=== PATIENT | female | born 1955 | race Caucasian/White ===

== ENCOUNTER 2018-01-06 07:28 | Emergency (ER) | payer BC, SELFPAY ==
[2018-01-06 07:50] VITALS: BP 133/79; PULSE 60; RESP 18; TEMP 36.7; O2SAT 99
[2018-01-06] MEDS: BUTALB/APAP/CAFFEINE 50/325/40 TABLET 2 EACH PO (08:24)
--- NOTE | 2018-01-06 08:27 | PC.NURSE ---
medicated pt with Fiorocet and ice pack provided for comfort.
[2018-01-06 08:54] VITALS: BP 139/75; PULSE 75; RESP 16; O2SAT 100
--- NOTE | 2018-01-06 08:54 | ED.HA ---
HPI - Headache General Chief Complaint: Headache Stated Complaint: MIGRAINE X2 DAY Time Seen by Provider: 01/06/18 07:48 History of Present Illness HPI Narrative: HPI 62-year-old female migraineur presents for evaluation of approximately 3 days of gradual onset typical left-sided retroocular headache that is been steady despite OTC medications. Patient notes good prior relief with Fioricet and is requesting the same. * Denies changes in vision or hearing, fevers, neck stiffness, rashes, neck pain, temporal pain, jaw pain with chewing, dental pain, minor neck trauma, chiropractic manipulation, or head trauma. * Denies anticoagulation or hypercoaguable history. * Unable to identify any higher risk exposures to possible carbon monoxide. M/S/F/SocHx notable for: please see HPI; remainder reviewed with patient and in chart. ROS: Negative constitutional, eye, cardiovascular, pulmonary, GI, , MSK, skin, neurologic, psychiatric, endocrine unless noted in the HPI. Exam Gen: Pleasant, non-toxic appearing, resting comfortably. HEENT: NC, AT, TMs clear bilaterally without effusions, erythema, or lesions, preauricular, pinna, and external canal skin without lesions. Dentition intact without visible caries. No frontal or maxillary sinus TTP. Temples without TTP bilaterally, equal 2+ temporal artery pulses. No paraspinal posterior neck pain. Resp: CTAB Card: RRR GI: NT/ND : Deferred MSK: No visible deformities, strength and tone WNL. Skin: Normal color with no visible lesions. Neuro: Gen AO x 3, no facial asymmetry, no gaze preference, no slurring of speech. CN II-III: pupils equal and reactive (3->2mm bilaterally); III, IV, : EOMI, V1-V3: sensation to touch bilaterally intact; VII: no facial asymmetry (frown / smile); VIII: no nystagmus; X: phonation intact, uvula midline; XI: trapezius 5/5 bilaterally, XII: tongue midline. Psych: Mood and affect appropriate. MDM Previous chart, nursing note, and vitals reviewed. A: 62-year-old female migraineur presents for evaluation of approximately 3 days of gradual onset typical left-sided retroocular headache that is been steady despite OTC medications. 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 Evaluation: * Migraine / tension headache - suspect a migraine given the consistency of symptoms with prior headaches and the relative exclusion of the remainder of the differential. * Cluster - doubt cluster headache given the absence of unilateral symptoms, eye watering, swelling, or nasal congestion. * [place] bleed/SAH - Doubt given gradual onset. Given similarity of this headache with prior headaches will manage conservatively without imaging. * Infection - Given lack of rash, meningismus, or fever; doubt meningitis. Similarly the history and exam are without evidence of acute otitis media, sinusitis, dental abscesses or clinically significant dental caries. * Mass - Consider a tumor or mass to be unlikely given the lack of a gradual onset, positional component, or neurological deficits. * Hypertensive encephalopathy - BP within the brain's autoregulatory zone. * Glaucoma or iritis - As the patient is without reported vision changes, eye pain, and an occular exam without increases in pain on pupillary constriction further evaluation was not pursued. * Idiopathic Intracranial Hypertension - unlikely given the lack of visual symptoms, short duration of symptoms, lack of worsening with valsalva, or more prominent morning symptoms. * Thrombosis - given the lack of identifiable risk factors (preceding facial infection, fever, and hypercoagulability) as well as an absence of deficits on exam doubt both cavernous and venous sinus thrombosis. * Temporal Arteritis - given lack of temporally localized headache, temporal tenderness or decreased temporal artery pulse, absent history of jaw claudication or vision changes; doubt. ED Course: Fioricet given with good effect. Disposition: discharge with RX for Fioricet. Impression: headache (please reference below for remainder of encounter information) Related Data Home Medications Medication Instructions Recorded Confirmed karentriptan [Maxalt] PO PRN PRN #0 03/14/17 11/14/17 Previous Rx's Medication Instructions Recorded suonibrdwj-soaaitikjjpgu-iutz 1 tab PO Q6HP PRN #14 tab 03/14/17 Allergies Allergy/AdvReac Type Severity Reaction Status Date / Time rizatriptan [RIZATRIPTAN] Allergy Mild NAUSEA Verified 01/06/18 08:12 [facility] Social History Smoking Status: Never smoker Exam Initial Vital Signs Initial Vital Signs: Vital Signs Temperature 98.1 F 01/06/18 07:50 Pulse Rate 60 01/06/18 07:50 Respiratory Rate 18 01/06/18 07:50 Blood Pressure 133/79 H 01/06/18 07:50 Pulse Oximetry 99 01/06/18 07:50 Course Orders Ordered: Discontinued Medications Acetaminophen/Butalbital/Caffeine (Fioricet) 2 each PO NOW ONE Stop: 01/06/18 07:49 Last Admin: 01/06/18 08:24 Dose: 2 each Vital Signs - 8 hr 01/06/18 07:50 Temperature 98.1 F Pulse Rate 60 Respiratory Rate 18 Blood Pressure 133/79 H Pulse Oximetry 99 Discharge Plan Departure Prescriptions: No Action rizatriptan [Maxalt] 5 mg Tablet PO PRN PRNQty: 0 RF: 0 dirriurcfi-qddvofqdgvtby-ysus 1 EACH tablet 1 tab PO Q6HP PRNQty: 14 RF: 0
--- NOTE | 2018-01-06 08:54 | PC.NURSE ---
pt reports MARCANO resolved and ready to go home. NAD noted and informed.
== END 2018-01-06 09:10 | disposition home or self-care (01) ==
PROVIDERS: Emergency Provider Emergency Medicine
DX: R51 Headache (principal)
CPT/HCPCS: 99282; 99283

== ENCOUNTER 2019-01-18 15:42 | Emergency (ER) | payer BC, SELFPAY ==
[2019-01-18 15:49] VITALS: BP 140/67; PULSE 60; RESP 16; O2SAT 100
[2019-01-18 15:52] VITALS: BP 140/76; PULSE 60; RESP 16; TEMP 36.4; O2SAT 100; BMI 23.5
[2019-01-18] MEDS: SODIUM CHLORIDE 0.9% 1,000 ML 1000 ML IV (16:37)
[2019-01-18] MEDS: KETOROLAC 60 MG/2 ML VIAL 30 MG IV (16:38)
[2019-01-18] MEDS: diphenhydrAMINE 50 MG/ML VIAL 25 MG IV (16:39)
[2019-01-18] MEDS: METOCLOPRAMIDE 10 MG/2 ML INJ IV (16:39)
[2019-01-18 17:18] VITALS: BP 129/56; PULSE 58; RESP 15; O2SAT 100
--- NOTE | 2019-01-18 17:19 | ED.HA ---
HPI - Headache <RENEE Moffett - Last Filed: 01/18/19 22:20> General Chief Complaint: Headache Stated Complaint: migraine since yesterday Time Seen by Provider: 01/18/19 15:53 Source: patient and family Mode of arrival: ambulatory Limitations: no limitations History of Present Illness HPI Narrative: This is a 63-year-old female, nonsmoker, who presents with spouse with chief complain of her usual frequent migraine type headache. She reports the left side headache has started yesterday with photophobia, nausea, left blurred vision which is her at user headache symptoms. She reports long history of migraine headache. Up until 2011, tjpd-rvl-dxyvalb extra-strength Excedrin had control the pain. She reports her headache has been more frequent and severe last couple of years. States this is her 3rd ER visit this year. She takes occasionally Fioricet but has not been as effective as previous times. She denies fever/chills, vomiting, rash, scalp tenderness, nuchal rigidity, recent head injury. She reports was evaluated at headache clinic in the past but is not agreeing with treatment plan and has not followed up with further appointment. She currently does not have PCP at this time. Related Data Home Medications Medication Instructions Recorded Confirmed rizatriptan [Maxalt] PO PRN PRN #0 03/14/17 11/14/17 Previous Rx's Medication Instructions Recorded rrmgytlbaw-sxyqyosgfqbik-wfcn 1 tab PO Q6HP PRN #14 tab 03/14/17 yutjqzslvg-gxyabxgizeqhe-sbhv 2 cap PO Q4H PRN #20 cap 01/06/18 [Fioricet] ogxfdrevxa-dlbbkhv-qizptkqy 1 tab PO Q6H PRN #10 tab 01/18/19 Allergies Allergy/AdvReac Type Severity Reaction Status Date / Time rizatriptan [RIZATRIPTAN] Allergy Mild NAUSEA Verified 01/18/19 15:57 Review of Systems <RENEE Moffett - Last Filed: 01/18/19 22:20> Review of Systems General: Denies fever, chills, fatigue, malaise, sweats. HEENT: Denies sinus pain, ear pain, sore throat, difficulty swallowing, dizziness. Respiratory: Denies dyspnea, cough, wheezing, hemoptysis, sputum. Cardiovascular: Denies chest pain, palpitations, orthopnea, edema. Gastrointestinal: Reports nausea. Denies vomiting, abdominal pain, diarrhea, constipation, melena. : Denies dysuria, frequency, incontinence, hematuria, urinary retention. Musculoskeletal: Denies weakness, joint pain or bony pain. Skin: Denies rash, skin lesions, or other. Neurologic: Denies weakness, numbness, change in speech, confusion, seizures, incoordination. Psychiatric: No concerning psychosocial issues. 12-point review of systems is negative except for those stated above. PFSH <ERNEE Moffett - Last Filed: 01/18/19 22:20> Medical History Migraine headache (Acute) History of hysterectomy (Chronic) Myocardial infarct (Chronic) Surgical History History of colonoscopy with polypectomy (Chronic) Social History Smoking Status: Never smoker Social History Smoking Status: Never smoker Exam <RENEE Moffett - Last Filed: 01/18/19 22:20> Narrative Exam Narrative: General appearance: well developed, well nourished, appears to be in distress. Resting in dark room during exam. Head: normocephalic, atraumatic, no scalp lesions, non-tender. Eye: pupil equal, round. EOMI. Nose: nares patent. Oral: mucosa moist. Neck/Thyroid: neck supple, full range of motion, no visible masses, no meningeal signs. Skin: no suspicious rashes, lesions over visible areas. Warm and dry. Heart: no clubbing, no cyanosis, no edema. Lungs: Breathing even and unlabored. No stridor. No accessory muscles used. Chest: normal shape and expansion. Abdomen: non-obese, non-distended. Neurologic: alert and oriented. Cognitive exam, MOSAIC FLOOR LAYER and PNS grossly intact on informal exam. Psych: good eye contact, normal affect. Initial Vital Signs Initial Vital Signs: Vital Signs Pulse Rate 60 01/18/19 15:49 Respiratory Rate 16 01/18/19 15:49 Blood Pressure 140/67 01/18/19 15:49 Pulse Oximetry 100 01/18/19 15:49 <Kiet Huerta DO - Last Filed: 01/21/19 23:54> Initial Vital Signs Initial Vital Signs: Vital Signs Pulse Rate 60 01/18/19 15:49 Respiratory Rate 16 01/18/19 15:49 Blood Pressure 140/67 01/18/19 15:49 Pulse Oximetry 100 01/18/19 15:49 Course <RENEE Moffett - Last Filed: 01/18/19 22:20> Orders Ordered: Discontinued Medications Diphenhydramine HCl (Benadryl) 25 mg IV NOW ONE Stop: 01/18/19 16:08 Last Admin: 01/18/19 16:39 Dose: 25 mg Sodium Chloride (Normal Saline 0.9%) 1,000 mls @ 1,000 mls/hr IV BOLUS ONE Stop: 01/18/19 17:06 Last Infusion: 01/18/19 18:04 Dose: 0 mls/hr Admin: 01/18/19 16:37 Dose: 1,000 mls/hr Ketorolac Tromethamine (Toradol) 30 mg IV NOW ONE Stop: 01/18/19 16:08 Last Admin: 01/18/19 16:38 Dose: 30 mg Metoclopramide HCl (Reglan) 10 mg IV NOW ONE Stop: 01/18/19 16:08 Last Admin: 01/18/19 16:39 Dose: 10 mg Vital Signs - 8 hr 01/18/19 15:49 01/18/19 15:52 01/18/19 17:18 Temperature 97.5 F L Pulse Rate 60 60 58 L Respiratory Rate 16 16 15 Blood Pressure 140/76 Blood Pressure [Right Arm] 140/67 129/56 L Pulse Oximetry 100 100 100 <Kiet Huerta DO - Last Filed: 01/21/19 23:54> Orders Ordered: Discontinued Medications Diphenhydramine HCl (Benadryl) 25 mg IV NOW ONE Stop: 01/18/19 16:08 Last Admin: 01/18/19 16:39 Dose: 25 mg Sodium Chloride (Normal Saline 0.9%) 1,000 mls @ 1,000 mls/hr IV BOLUS ONE Stop: 01/18/19 17:06 Last Infusion: 01/18/19 18:04 Dose: 0 mls/hr Admin: 01/18/19 16:37 Dose: 1,000 mls/hr Ketorolac Tromethamine (Toradol) 30 mg IV NOW ONE Stop: 01/18/19 16:08 Last Admin: 01/18/19 16:38 Dose: 30 mg Metoclopramide HCl (Reglan) 10 mg IV NOW ONE Stop: 01/18/19 16:08 Last Admin: 01/18/19 16:39 Dose: 10 mg Vital Signs - 8 hr 01/18/19 15:49 01/18/19 15:52 01/18/19 17:18 Temperature 97.5 F L Pulse Rate 60 60 58 L Respiratory Rate 16 16 15 Blood Pressure 140/76 Blood Pressure [Right Arm] 140/67 129/56 L Pulse Oximetry 100 100 100 [facility] - Headache <RENEE Moffett - Last Filed: 01/18/19 22:20> Differential Diagnosis Differential diagnosis: Likely migraine and headache Medical Records Attestation: I reviewed the patient's medical records. [facility] Narrative Medical decision making narrative: This is a 63-year-old female with chief complain of her typical migraine headaches. She reports has long history of migraine headaches. Past couple of years her headache been worse with severity and frequency. She takes Fioricet as needed occasionally for severe headaches, however, symptoms this has not been as effective as previous times. She currently does not have PCP, and is not being seen by headache specialist or neurologist. She does not endorse constitutional symptoms, rash, scalp pain, nuchal rigidity. She states today's headache is pretty typical for her migraine headaches as for locations and however presents. Her neurological exam was benign. Patient was medicated with IV fluid of normal saline 1 L, Toradol 30 mg IV, Benadryl 25 mg IV, Reglan 10 mg. Patient felt improved after the medications and IV hydration. Patient was discharged with Furinol this time since she felt aspirin component works better in this medication that Fioricet. Return precautions were discussed with the patient and spouse. The patient was advised not to take more than 6 tests within 24 period of the Furinol. Butalbital medication precaution was discussed with patient. [facility] resources number has provided. Questions answered to apparent satisfaction. Discharge Plan Departure Patient Disposition: Home Clinical Impression: Migraine Qualifiers: Migraine type: unspecified Status migrainosus presence: without status migrainosus Intractability: not intractable Qualified Code(s): G43.909 - Migraine, unspecified, not intractable, without status migrainosus Discharge Date/Time: 01/18/19 18:11 Interventions: ED Discharge Assessment Last Done: 01/18/19 18:10 Instructions: DI for Migraine Activity Restrictions/Additional Instructions: You have been diagnosed with [migraine headache. You're treated with IV normal saline, Toradol, Benadryl and Reglan to treat her headache today.]. What to do: *Take your medications as directed. Will re-prescribe Fioricet for you're headache. * please establish a primary care physician and call for an appointment. You may need a referral to neurologist or headache specialist from primary care physician. Let them know you were seen in the ED and that we asked you to be seen in follow up. *Return to ED if you have any new, worsening, or concerning symptoms, such as [facial trips, speech difficulty, weakness to extremities, balance problem, vision change, chest pain, breathing difficulty, unable to tolerate fluids, any acute concerns]. Prescriptions: New yoqngildyl-mqvszaa-xxkhasoa 50-325-40 mg tablet 1 tab PO Q6H PRN (Reason: pain) Qty: 10 RF: 0 No Action rizatriptan [Maxalt] 5 mg Tablet PO PRN PRNQty: 0 RF: 0 rxmsdgcrpg-kibguktehtbir-evxv 1 EACH tablet 1 tab PO Q6HP PRNQty: 14 RF: 0 mzmuovehkm-fchzrixbhrgse-ogxz [Fioricet] 50-300-40 mg capsule 2 cap PO Q4H PRN (Reason: headache) Qty: 20 RF: 0 Referrals: [facility] [Outside] <Kiet Huerta DO - Last Filed: 01/21/19 23:54> [facility] Attending Gagan Attestation: I was available for consultation during this patient's emergency department encounter
--- NOTE | 2019-01-18 17:23 | ED_ITS ---
HPI - Headache <RENEE Moffett - Last Filed: 01/18/19 22:20> General Chief Complaint: Headache Stated Complaint: migraine since yesterday Time Seen by Provider: 01/18/19 15:53 Source: patient and family Mode of arrival: ambulatory Limitations: no limitations History of Present Illness HPI Narrative: This is a 63-year-old female, nonsmoker, who presents with spouse with chief complain of her usual frequent migraine type headache. She reports the left side headache has started yesterday with photophobia, nausea, left blurred vision which is her at user headache symptoms. She reports long history of migraine headache. Up until 2011, zoad-jwn-pfzpuai extra-strength Excedrin had control the pain. She reports her headache has been more frequent and severe last couple of years. States this is her 3rd ER visit this year. She takes occasionally Fioricet but has not been as effective as previous times. She denies fever/chills, vomiting, rash, scalp tenderness, nuchal rigidity, recent head injury. She reports was evaluated at headache clinic in the past but is not agreeing with treatment plan and has not followed up with further appointment. She currently does not have PCP at this time. Related Data Home Medications Medication Instructions Recorded Confirmed rizatriptan [Maxalt] PO PRN PRN #0 03/14/17 11/14/17 Previous Rx's Medication Instructions Recorded nyzqixwtty-mfhvzlmrvzjen-hipr 1 tab PO Q6HP PRN #14 tab 03/14/17 dtfdqraljh-gpwfbwgerbdna-jxhh 2 cap PO Q4H PRN #20 cap 01/06/18 [Fioricet] bwrrrwiink-kihfjyx-vtnespeq 1 tab PO Q6H PRN #10 tab 01/18/19 Allergies Allergy/AdvReac Type Severity Reaction Status Date / Time rizatriptan [RIZATRIPTAN] Allergy Mild NAUSEA Verified 01/18/19 15:57 Review of Systems <RENEE Moffett - Last Filed: 01/18/19 22:20> Review of Systems General: Denies fever, chills, fatigue, malaise, sweats. HEENT: Denies sinus pain, ear pain, sore throat, difficulty swallowing, dizzin ess. Respiratory: Denies dyspnea, cough, wheezing, hemoptysis, sputum. Cardiovascular: Denies chest pain, palpitations, orthopnea, edema. Gastrointestinal: Reports nausea. Denies vomiting, abdominal pain, diarrhea, constipation, melena. : Denies dysuria, frequency, incontinence, hematuria, urinary retention. Musculoskeletal: Denies weakness, joint pain or bony pain. Skin: Denies rash, skin lesions, or other. Neurologic: Denies weakness, numbness, change in speech, confusion, seizures, incoordination. Psychiatric: No concerning psychosocial issues. 12-point review of systems is negative except for those stated above. PFSH <RENEE Moffett - Last Filed: 01/18/19 22:20> Medical History Migraine headache (Acute) History of hysterectomy (Chronic) Myocardial infarct (Chronic) Surgical History History of colonoscopy with polypectomy (Chronic) Social History Smoking Status: Never smoker Social History Smoking Status: Never smoker Exam <RENEE Moffett - Last Filed: 01/18/19 22:20> Narrative Exam Narrative: General appearance: well developed, well nourished, appears to be in distress. Resting in dark room during exam. Head: normocephalic, atraumatic, no scalp lesions, non-tender. Eye: pupil equal, round. EOMI. Nose: nares patent. Oral: mucosa moist. Neck/Thyroid: neck supple, full range of motion, no visible masses, no meningeal signs. Skin: no suspicious rashes, lesions over visible areas. Warm and dry. Heart: no clubbing, no cyanosis, no edema. Lungs: Breathing even and unlabored. No stridor. No accessory muscles used. Chest: normal shape and expansion. Abdomen: non-obese, non-distended. Neurologic: alert and oriented. Cognitive exam, LINE MANAGER and PNS grossly intact on informal exam. Psych: good eye contact, normal affect. Initial Vital Signs Initial Vital Signs: Vital Signs Pulse Rate 60 01/18/19 15:49 Respiratory Rate 16 01/18/19 15:49 Blood Pressure 140/67 01/18/19 15:49 Pulse Oximetry 100 01/18/19 15:49 <Kiet Huerta DO - Last Filed: 01/21/19 23:54> Initial Vital Signs Initial Vital Signs: Vital Signs Pulse Rate 60 01/18/19 15:49 Respiratory Rate 16 01/18/19 15:49 Blood Pressure 140/67 01/18/19 15:49 Pulse Oximetry 100 01/18/19 15:49 Course <RENEE Moffett - Last Filed: 01/18/19 22:20> Orders Ordered: Discontinued Medications Diphenhydramine HCl (Benadryl) 25 mg IV NOW ONE Stop: 01/18/19 16:08 Last Admin: 01/18/19 16:39 Dose: 25 mg Sodium Chloride (Normal Saline 0.9%) 1,000 mls @ 1,000 mls/hr IV BOLUS ONE Stop: 01/18/19 17:06 Last Infusion: 01/18/19 18:04 Dose: 0 mls/hr Admin: 01/18/19 16:37 Dose: 1,000 mls/hr Ketorolac Tromethamine (Toradol) 30 mg IV NOW ONE Stop: 01/18/19 16:08 Last Admin: 01/18/19 16:38 Dose: 30 mg Metoclopramide HCl (Reglan) 10 mg IV NOW ONE Stop: 01/18/19 16:08 Last Admin: 01/18/19 16:39 Dose: 10 mg Vital Signs - 8 hr 01/18/19 15:49 01/18/19 15:52 01/18/19 17:18 Temperature 97.5 F L Pulse Rate 60 60 58 L Respiratory Rate 16 16 15 Blood Pressure 140/76 Blood Pressure [Right Arm] 140/67 129/56 L Pulse Oximetry 100 100 100 <Kiet Huerta DO - Last Filed: 01/21/19 23:54> Orders Ordered: Discontinued Medications Diphenhydramine HCl (Benadryl) 25 mg IV NOW ONE Stop: 01/18/19 16:08 Last Admin: 01/18/19 16:39 Dose: 25 mg Sodium Chloride (Normal Saline 0.9%) 1,000 mls @ 1,000 mls/hr IV BOLUS ONE Stop: 01/18/19 17:06 Last Infusion: 01/18/19 18:04 Dose: 0 mls/hr Admin: 01/18/19 16:37 Dose: 1,000 mls/hr Ketorolac Tromethamine (Toradol) 30 mg IV NOW ONE Stop: 01/18/19 16:08 Last Admin: 01/18/19 16:38 Dose: 30 mg Metoclopramide HCl (Reglan) 10 mg IV NOW ONE Stop: 01/18/19 16:08 Last Admin: 01/18/19 16:39 Dose: 10 mg Vital Signs - 8 hr 01/18/19 15:49 01/18/19 15:52 01/18/19 17:18 Temperature 97.5 F L Pulse Rate 60 60 58 L Respiratory Rate 16 16 15 Blood Pressure 140/76 Blood Pressure [Right Arm] 140/67 129/56 L Pulse Oximetry 100 100 100 [facility] - Headache <RENEE Moffett - Last Filed: 01/18/19 22:20> Differential Diagnosis Differential diagnosis: Likely migraine and headache Medical Records Attestation: I reviewed the patient's medical records. [facility] Narrative Medical decision making narrative: This is a 63-year-old female with chief complain of her typical migraine headaches. She reports has long history of migraine headaches. Past couple of years her headache been worse with severity and frequency. She takes Fioricet as needed occasionally for severe headaches, however, symptoms this has not been as effective as previous times. She currently does not have PCP, and is not being seen by headache specialist or neurologist. She does not endorse constitutional symptoms, rash, scalp pain, nuchal rigidity. She states today's headache is pretty typical for her migraine headaches as for locations and however presents. Her neurological exam was benign. Patient was medicated with IV fluid of normal saline 1 L, Toradol 30 mg IV, Benadryl 25 mg IV, Reglan 10 mg. Patient felt improved after the medications and IV hydration. Patient was discharged with Furinol this time since she felt aspirin component works better in this medication that Fioricet. Return precautions were discussed with the patient and spouse. The patient was advised not to take more than 6 tests within 24 period of the Furinol. Butalbital medication precaution was discussed with patient. [facility] resources number has provided. Questions answered to apparent satisfaction. Discharge Plan Departure Patient Disposition: Home Clinical Impression: Migraine Qualifiers: Migraine type: unspecified Status migrainosus presence: without status migrainosus Intractability: not intractable Qualified Code(s): G43.909 - Migraine, unspecified, not intractable, without status migrainosus Discharge Date/Time: 01/18/19 18:11 Interventions: ED Discharge Assessment Last Done: 01/18/19 18:10 Instructions: DI for Migraine Activity Restrictions/Additional Instructions: You have been diagnosed with [migraine headache. You're treated with IV normal saline, Toradol, Benadryl and Reglan to treat her headache today.]. What to do: *Take your medications as directed. Will re-prescribe Fioricet for you're headache. * please establish a primary care physician and call for an appointment. You may need a referral to neurologist or headache specialist from primary care physician. Let them know you were seen in the ED and that we asked you to be seen in follow up. *Return to ED if you have any new, worsening, or concerning symptoms, such as [facial trips, speech difficulty, weakness to extremities, balance problem, vision change, chest pain, breathing difficulty, unable to tolerate fluids, any acute concerns]. Prescriptions: New hrbphxbljs-bqmvlmi-qfuxlnfi 50-325-40 mg tablet 1 tab PO Q6H PRN (Reason: pain) Qty: 10 RF: 0 No Action rizatriptan [Maxalt] 5 mg Tablet PO PRN PRNQty: 0 RF: 0 alestgaqgy-lopbmrpnyytxn-dblo 1 EACH tablet 1 tab PO Q6HP PRNQty: 14 RF: 0 ujxnxpvxzi-alcfizzszvmbe-atfr [Fioricet] 50-300-40 mg capsule 2 cap PO Q4H PRN (Reason: headache) Qty: 20 RF: 0 Referrals: [facility] Resources [Outside] <Kiet Huerta DO - Last Filed: 01/21/19 23:54> [facility] Attestation: I was available for consultation during this patient's emergency department encounter
== END 2019-01-18 18:11 | disposition home or self-care (01) ==
PROVIDERS: Emergency Provider Nurse Practitioner Family
DX: G43.909 Migraine, unspecified, not intractable, without status migrainosus (principal)
CPT/HCPCS: 96361; 96374; 96375; 99283; 99284; J1200; J1885; J2765

== ENCOUNTER 2020-09-10 21:34 | Emergency (ER) | payer BC, SELFPAY ==
[2020-09-10 21:40] VITALS: BP 142/65; PULSE 63; RESP 18; TEMP 36.7; O2SAT 98; BMI 19.7
--- NOTE | 2020-09-10 22:19 | ED_ITS ---
HPI - Extremity Problem General Chief complaint: Animal Bite Stated complaint: RIGHT ARM DOG BITE BY HER DOG Time Seen by Provider: 09/10/20 21:49 Source: patient Mode of arrival: Ambulatory Limitations: no limitations History of Present Illness HPI Narrative: This is a 65-year-old female comes emergency department with complaint of dog bite to her right forearm. Patient states she came because there was quite a bit of bleeding from 1 of the lacerations. Patient states it has stopped since they placed a bandage at the [facility]. Patient denies any numbness, tingling or weakness. She does have some slight increase in swelling in that hand distally but this may be from the bandage. She states it is her personal dog. She states the dog seems to have possession aggression. This is the 1st time the dog has bitten her but it has been her spouse. She states that she is otherwise healthy, she denies any regular medications. No allergies to medications. Tetanus is up-to-date. Patient states her dog's immunizations are also up-to-date. Related Data Home Medications Medication Instructions Recorded Confirmed rizatriptan [Maxalt] PO PRN PRN #0 03/14/17 11/14/17 Previous Rx's Medication Instructions Recorded nbjjfmcqux-ljnnaaysnneut-gtcw 1 tab PO Q6HP PRN #14 tab 03/14/17 zdgimutiht-dyedoexaxjldz-jqtd 2 cap PO Q4H PRN #20 cap 01/06/18 [Fioricet] gweunynwmd-tpvyyhq-vraebaih 1 tab PO Q6H PRN #10 tab 01/18/19 amoxicillin-pot clavulanate 1 tab PO Q12H #20 tab 09/10/20 [Augmentin] Allergies Allergy/AdvReac Type Severity Reaction Status Date / Time rizatriptan [RIZATRIPTAN] Allergy Mild NAUSEA Verified 09/10/20 22:55 Review of Systems Review of Systems ROS Unobtainable: All systems reviewed & are unremarkable except as noted in HPI and below Patient History Medical History (Updated 09/10/20 @ 22:26 by Kathrin Mota DO) Migraine headache Myocardial infarct Surgical History History of colonoscopy with polypectomy History of hysterectomy Social History Smoking Status: Never smoker Smoking Status: Never smoker alcohol intake frequency: 0-2 drinks per day Substance Use Type: does not use Exam Narrative Exam Narrative: GENERAL: Alert and oriented x three, well-nourished female in mild distress. HEENT: Head normocephalic, atraumatic, EOMI, pupils reactive, face symmetric, moist mucous membranes NECK: Supple, full range of motion EXTREMITIES: Normal range of motion, no clubbing. Mild edema of the right hand edema adjacent to where patient's circumferential bandage was placed. Neurovascularly intact. Full range of motion of all 5 fingers. Normal sensation throughout all 5 fingers. 2+ radial pulse. Patient does not have any significant ecchymosis or bony tenderness. Patient has a 0.5 cm laceration that is mildly gapped on the palmar side of the wrist, she has a small 0.25 cm puncture wound on lateral/radial side of the wrist as well as a small avulsion laceration on the dorsum of the wrist that does not gape. NEUROLOGICAL: Cranial nerves II through XII grossly intact. Moving all extremities SKIN: Warm, dry, no petechiae, no rashes or lesions other than noted above. Initial Vital Signs Initial Vital Signs: Vital Signs Temperature 98.1 F 09/10/20 21:40 Pulse Rate 63 09/10/20 21:40 Respiratory Rate 18 09/10/20 21:40 Blood Pressure 142/65 H 09/10/20 21:40 Pulse Oximetry 98 09/10/20 21:40 Procedures Laceration Repair Laceration 1: Site: upper extremity Size (cm): 0.5 Description: irregular Pre-repair: wound explored, irrigated extensively and deep structures intact Skin layer closed with: steri-strips Course Orders Ordered: Discontinued Medications Amoxicillin/Clavulanate Potassium (Amoxicillin/Clav 875/125 Mg) 1 tab PO NOW ONE Stop: 09/10/20 22:09 Last Admin: 09/10/20 22:51 Dose: 1 tab Documented by: KAREN Vital Signs Vital signs: Vital Signs - 8 hr 09/10/20 21:40 09/10/20 23:08 Temperature 98.1 F Pulse Rate 63 72 Respiratory Rate 18 16 Blood Pressure 142/65 H 146/62 H Pulse Oximetry 98 98 MDM - Extremity (Nontraumatic) MDM Narrative Medical decision making narrative: 65-year-old female with a dog bite, known dog with immunizations and patient is up to date qwit her tetanus with injury to her right forearm. Patient does not have any active bleeding after evaluation. Area was cleansed patient was started on Augmentin and given a prescription. After discussion plan of for no suture for the largest laceration as it increases her risk for infection and she will only have minimal scarring. Patient is comfortable with this plan. We will do Steri-Strips to help with alignment. Discharge Plan Departure Patient Disposition: Home Clinical Impression: Dog bite of right wrist Qualifiers: Encounter type: initial encounter Qualified Code(s): S61.551A - Open bite of right wrist, initial encounter Instructions: DI for Dog Bite Activity Restrictions/Additional Instructions: Take antibiotics until gone. You may take Tylenol up to a 1000 mg every 8 hours as needed for pain and or ibuprofen up to 600 mg every 6 hours. Allow steri-strips to fall off, you can trim the edges if they peel up. Prescription sent to [facility]. Wound Care: Keep wound(s) clean and dry. Wash twice daily with soap and water only. Do not use over the counter products (alcohol or peroxide)on the wounds unless instructed by a physician. If wound condition worsens (increased/expanding redness, developing fluid blisters, or worsening pain), either contact your doctor for an urgent re-asses sment , or return to the Emergency Department. Return to the Emergency Department for any new or worsening symptoms. Return if fever greater than 100.4 Fahrenheit, increased swelling, increasing pain or worsening symptoms such as increased discharge or spreading redness, new numbness, tingling or weakness or other new or concerning symptoms. Prescriptions: New amoxicillin-pot clavulanate [Augmentin] 875-125 mg tablet 1 tab PO Q12H Qty: 20 RF: 0 No Action rizatriptan [Maxalt] 5 mg Tablet PO PRN PRNQty: 0 RF: 0 ckbnwpnnii-nmmpwrxvfyhht-rakn 1 EACH tablet 1 tab PO Q6HP PRNQty: 14 RF: 0 qldgobdqhi-awwqohpldgbkt-cznq [Fioricet] 50-300-40 mg capsule 2 cap PO Q4H PRN (Reason: headache) Qty: 20 RF: 0 ftchekjbbk-nskdbow-vddjulzl 50-325-40 mg tablet 1 tab PO Q6H PRN (Reason: pain) Qty: 10 RF: 0
[2020-09-10] MEDS: AMOXICILLIN/CLAV 875/125 MG 1 TAB PO (22:51)
[2020-09-10 23:08] VITALS: BP 146/62; PULSE 72; RESP 16; O2SAT 98
== END 2020-09-10 23:09 | disposition home or self-care (01) ==
PROVIDERS: Emergency Provider Emergency Medicine
DX: S51.851A Open bite of right forearm, initial encounter (principal); W54.0XXA Bitten by dog, initial encounter
CPT/HCPCS: 99283